=== PATIENT | female | born 1980 | race Caucasian/White ===

== ENCOUNTER → 2020-02-28 | Outpatient (CLI) | payer BC | LOC: GMAL 10:44 | PROVIDERS: ATTEND Family Medicine | DX: R53.82 Chronic fatigue, unspecified (principal); E55.9 Vitamin D deficiency, unspecified; D51.3 Other dietary vitamin B12 deficiency anemia ==

== ENCOUNTER 2020-05-09 12:11 | Outpatient (CLI) | payer BC | END 2020-05-09 14:23 | disposition home or self-care (01) | LOC: INFRM 12:11 | PROVIDERS: ATTEND Family Medicine | DX: U07.1 COVID-19 (principal); Z23 Encounter for immunization ==

== ENCOUNTER → 2020-06-08 | Outpatient (CLI) | payer BC | LOC: GMAL 12:39 | PROVIDERS: ATTEND Family Medicine | DX: D51.3 Other dietary vitamin B12 deficiency anemia (principal); R53.82 Chronic fatigue, unspecified; E55.9 Vitamin D deficiency, unspecified ==